=== PATIENT | male | born 1990 | race Caucasian/White ===

== ENCOUNTER 2023-05-18 18:20 | Emergency (ER) | payer OTHER ==
[~2023-05-18] VITALS: Ht 193 cm; Wt 127.0 kg
[2023-05-18 21:00] VITALS: BP 126/74
[2023-05-18] MEDS ORDERED: XCOPRI100 MG PO (21:09)
[2023-05-18] MEDS ORDERED: LAMOTRIGINE100 M1 PO (21:10)
== END 2023-05-18 21:08 | disposition home or self-care (01) ==
LOC: ER 18:20
DX: G40.909 Epilepsy, unspecified, not intractable, without status epilepticus (principal); Z79.899 Other long term (current) drug therapy
CPT/HCPCS: 96360; 99284-25; J7030